=== PATIENT | female | born 1990 | race African-American/Black ===

== ENCOUNTER 2018-06-26 18:43 | Emergency (ER) | payer SELFPAY ==
[~2018-06-26] VITALS: Ht 165.1 cm; Wt 60.0 kg
[2018-06-26 21:22] VITALS: BP 130/84
== END 2018-06-26 22:00 | disposition left against medical advice (07) ==
LOC: ER 18:43
DX: O26.892 Other specified pregnancy related conditions, second trimester (principal); Z53.21 Procedure and treatment not carried out due to patient leaving prior to being seen by health care provider; Z3A.14 14 weeks gestation of pregnancy